=== PATIENT | male | born 1965 | race Caucasian/White ===

== ENCOUNTER 2023-08-14 14:49 | Outpatient (CLI) | payer BC, SELFPAY ==
[2023-08-14 14:11] LABS: Hemoglobin A1C 4.6 % (<5.7)
[2023-08-14 15:09] LABS: Calculated LDL 66 mg/dL (<100); Cholesterol 166 mg/dL (<200); HDL Cholesterol 93 mg/dL (40-60); TSH (W/Ref FT4) 5.14 uIU/mL (0.36-3.74); Triglyceride 39 mg/dL (<150)
[2023-08-14 15:32] LABS: FREE T4 0.92 ng/dL (0.76-1.46); Uric Acid 4.3 mg/dL (3.5-7.2)
== END 2023-08-14 14:50 | disposition home or self-care (01) ==
LOC: LBO 14:49
PROVIDERS: PCP Nurse Practitioner Family; Visit Provider Nurse Practitioner Family
DX: Z13.1 Encounter for screening for diabetes mellitus (principal); M10.9 Gout, unspecified; Z13.220 Encounter for screening for lipoid disorders; E03.9 Hypothyroidism, unspecified
CPT/HCPCS: 36415; 80061; 83036; 84439; 84443; 84550

== ENCOUNTER 2024-07-17 01:37 | Outpatient (CLI) | payer BC, SELFPAY ==
[2024-07-17 14:17] LABS: Hemoglobin A1C 4.9 % (<5.7)
[2024-07-17 14:35] LABS: Calculated LDL 83 mg/dL (<100); Cholesterol 186 mg/dL (<200); HDL Cholesterol 89 mg/dL (40-60); TSH (W/Ref FT4) 3.14 uIU/mL (0.36-3.74); Triglyceride 73 mg/dL (<150)
== END 2024-07-17 01:38 | disposition home or self-care (01) ==
PROVIDERS: PCP Nurse Practitioner Family; Visit Provider Nurse Practitioner Family
DX: Z13.1 Encounter for screening for diabetes mellitus (principal); E03.9 Hypothyroidism, unspecified; Z13.220 Encounter for screening for lipoid disorders
CPT/HCPCS: 36415; 80061; 83036; 84443

== ENCOUNTER 2024-09-04 14:03 | Outpatient (CLI) | payer BC, SELFPAY ==
[2024-09-04 14:04] LABS: Abs Immature Grans 0.04 10^3/uL (0.0-0.06); Absolute Basophil Count 0.04 10^3/uL (0.0-0.2); Absolute Eosinophil Count 0.04 10^3/uL (0.0-0.7); Absolute Lymphocyte Count 0.55 10^3/uL (1.2-3.4); Absolute Monocyte Count 0.94 10^3/uL (0.1-0.8); Absolute Neutrophil Count 8.47 10^3/uL (1.2-6.7); Basophils % 0.4 %; Eosinophils % 0.4 %; HCT 41.4 % (40.0-50.0); HGB 13.6 g/dL (13.5-17.5); Immature Grans % 0.4 %; Lymphocytes % 5.5 %; MCH 32.3 pg (27.0-33.0); MCHC 32.9 % (32.0-36.0); MCV 98 fL (80-95); MPV 8.6 fL (8.0-11.0); Monocytes % 9.3 %; Platelet Count 445 10^3/uL (130-400); RBC 4.21 10^6/uL (4.36-5.78); RDW 12.6 % (11.8-14.1); RDW-SD 44.9 fL; WBC 10.08 10^3/uL (4.4-10.8)
[2024-09-04 14:05] LABS: ESR 23 mm/hr (0-20)
[2024-09-04 15:07] LABS: ALT 12 U/L (16-63); AST 11 U/L (15-37); Albumin 2.7 g/dL (3.4-5.0); Alkaline Phosphatase 71 U/L (46-116); Anion Gap 3.3 mmol/L (3-11); BUN 9 mg/dL (7-18); C-Reactive Protein 8.67 mg/dL (<or=0.5); CO2 30.7 mmol/L (21.0-32.0); CREATININE 0.9 mg/dL (0.70-1.30); Calcium 9.7 mg/dL (8.5-10.1); Chloride 102 mmol/L (98-107); Creatine Kinase 24 U/L (39-308); Estimated GFR 99.62 (mL/min/1.73m2); Glucose 104 mg/dL (74-106); Potassium 4.3 mmol/L (3.5-5.1); Sodium 136 mmol/L (136-145); Total Protein 7.5 g/dL (6.4-8.2)
[2024-09-07 11:24] LABS: Lyme Ab w Rflx to Lyme Confirm Negative (Negative)
[2024-09-09 00:41] LABS: Anaplasma phagocytophilum Negative (Negative); B. miyamotoi PCR Negative (Negative); Babesia divergens/MO-1 Negative (Negative); Babesia duncani Negative (Negative); Babesia microti Negative (Negative); Ehrlichia chaffeensis Negative (Negative); Ehrlichia ewingii/canis Negative (Negative); Ehrlichia muris eauclairensis Negative (Negative)
== END 2024-09-04 14:04 | disposition home or self-care (01) ==
PROVIDERS: PCP Nurse Practitioner Family; Visit Provider Nurse Practitioner Family
DX: M79.10 Myalgia, unspecified site (principal)
CPT/HCPCS: 36415; 80053; 82550; 85652; 87798; 85025; 86140; 86618

== ENCOUNTER 2024-09-11 13:42 | Outpatient (CLI) | payer BC, SELFPAY ==
[2024-09-11 21:49] LABS: Rheumatoid Factor 12.8 IU/mL (<12.0)
[2024-09-14 15:36] LABS: ANA Interpretation Positive (Negative); ANA Titer Pattern 1:160 Speckled
== END 2024-09-11 13:43 | disposition home or self-care (01) ==
LOC: LBO 13:42
PROVIDERS: PCP Nurse Practitioner Family; Visit Provider Nurse Practitioner Family
DX: M79.10 Myalgia, unspecified site (principal)
CPT/HCPCS: 36415; 86038; 86431

== ENCOUNTER 2024-09-24 09:45 | Outpatient (CLI) | payer BC, SELFPAY ==
[2024-09-24 09:29] LABS: ESR 22 mm/hr (0-20)
[2024-09-24 09:30] LABS: Bilirubin Negative (Negative); Blood Negative (Negative); Clarity Clear (Clear); Glucose Negative (Negative); Ketones Trace mg/dL (Negative); Leukocyte Esterase Negative (Negative); Nitrite Negative (Negative); Specific Gravity 1.015 (1.005-1.025); Urobilinogen 0.2 mg/dL (Up to 0.2)
[2024-09-25 10:45] LABS: Cyclic Citrullinated Peptide <2.5 U/mL (<5.0)
[2024-09-26 12:12] LABS: Aldolase 6.4 U/L (<7.7)
[2024-09-28 15:29] LABS: RNP Ab, IgG <6.0 CU (<20.0); Ro60 Ab, IgG <7.0 CU (<20.0); SS-A/Ro, IgG <2.3 CU (<20.0); SS-B (La) Ab, IgG <3.3 CU (<20.0); Sm (Smith) Ab, IgG <8.0 CU (<20.0)
== END 2024-09-24 09:46 | disposition home or self-care (01) ==
PROVIDERS: PCP Nurse Practitioner Family; Visit Provider Nurse Practitioner Family
DX: M32.9 Systemic lupus erythematosus, unspecified (principal); Z09 Encounter for follow-up examination after completed treatment for conditions other than malignant neoplasm
CPT/HCPCS: 36415; 85652; 86200; 81003; 82085; 86235